=== PATIENT | male | born 1995 | race Caucasian/White ===

== ENCOUNTER 2023-04-02 12:56 | Emergency (ER) | payer OTHER, SELFPAY ==
[2023-04-02 14:23] VITALS: BP 122/70; PULSE 84; RESP 18; TEMP 36.6; O2SAT 95; BMI 25.8
--- NOTE | 2023-04-02 15:12 | ED.NURSE ---
patient is soaking finger in the [place] and water. bleeding is controlled.
--- NOTE | 2023-04-02 15:37 | CRLHL7_ITS ---
For Patients: As a result of the Cures Act, medical imaging exams and procedure reports are released immediately into your electronic medical record. You may view this report before your referring provider. If you have questions, please contact your health care provider. Indication: Trauma. Technique: Left 2nd digit, 3 views. Comparison: None. Findings/Impression: Bones: Alignment is normal. No displaced fractures or bone lesions. Joint spaces: Unremarkable. Soft tissues: Unremarkable. Dictated by Milton Navarrete MD @ 04/02/2023 5:20:31 PM (Electronically Signed)
--- NOTE | 2023-04-02 15:52 | ED_ITS ---
HPI - Extremity Injury (Upper) General Date Seen: 04/02/23 Chief Complaint: Extremity Pain/Injury, Upper Stated Complaint: Lac L index finger Time Seen by Provider: 04/02/23 15:15 Source: patient Mode of arrival: ambulatory Limitations: no limitations History of Present Illness HPI narrative: Patient is a 27-year-old male presenting emergency department for laceration to index finger. He is using handheld band saw when his left cut his finger. Thinks this all started slowing down by having his finger any pulled away right away Denies any decreased range of motion. No other injuries. No other concerns. Related Data Home Medications Medication Instructions Recorded Confirmed No Known Home Medications 04/02/23 04/02/23 Previous Rx's Medication Instructions Recorded cephalexin 500 mg capsule 500 mg PO QID #20 caps 04/02/23 Allergies Allergy/AdvReac Type Severity Reaction Status Date / Time No Known Drug Allergies Allergy Verified 04/02/23 14:27 Review of Systems Narrative: Pertinent systems negative unless stated in HPI Exam Narrative: Exam Narrative: Const: Well-nourished, Well-developed, in mild distress Eyes: PERRL, no conjunctival injection, and symmetrical lids HENT: Atraumatic external nose and ears. Moist mucous membranes. MSK:Extremities w/o deformity, Normal Active ROM Skin: Warm, Dry. 1 cm laceration to left index finger half way circumferential Neuro: Normal Muscle tone, No focal neurological deficits. Psych: Awake, Alert, & Oriented x3. Appropriate mood and affect. Const: Vital Signs, click to edit/add: Vital Signs - 24 hr 04/02/23 14:23 Temperature 97.8 F Pulse Rate [Pulse Oximeter] 84 Respiratory Rate 18 Blood Pressure [Ri ght Upper Arm] 122/70 Pulse Oximetry 95 Oxygen Delivery Me thod Room Air Course Vital Signs Vital signs: Initial Vital Signs Temperature 97.8 F 04/02/23 14:23 Temperature Source Temporal Artery Scan 04/02/23 14:23 Pulse Rate 84 04/02/23 14:23 Respiratory Rate 18 04/02/23 14:23 Blood Pressure 122/70 04/02/23 14:23 Blood Pressure Mean 87 04/02/23 14:23 Pulse Oximetry 95 04/02/23 14:23 Oxygen Delivery Method Room Air 04/02/23 14:23 Vital Signs Temperature 97.8 F 04/02/23 14:23 Pulse Rate 84 04/02/23 14:23 Respiratory Rate 18 04/02/23 14:23 Blood Pressure 122/70 04/02/23 14:23 Pulse Oximetry 95 04/02/23 14:23 Oxygen Delivery Method Room Air 04/02/23 14:23 Temperature 97.8 F 04/02/23 14:23 Pulse Rate 84 04/02/23 14:23 Respiratory Rate 18 04/02/23 14:23 Blood Pressure 122/70 04/02/23 14:23 Pulse Oximetry 95 04/02/23 14:23 Oxygen Delivery Method Room Air 04/02/23 14:23 MDM - Extremity Injury (Upper) MDM Narrative Medical decision making narrative: Patient is a 27-year-old male presenting for laceration to his left index finger. I do not see any foreign bodies and he has full range motion of extension and flexion. He tolerated the procedure well but considering the mechanism action I do want to get an x-ray to make sure there is no fracture of the bone. There are no signs of fracture at this time. He will be discharged home. He is agreeable with this plan as. Due to it being the finger and was relatively dirty blade I will start him on antibiotics. Discharge Plan Discharge Clinical Impression: Finger laceration Qualifiers: Encounter type: initial encounter Finger: index finger Damage to nail status: without damage Foreign body presence: without foreign body Laterality: left Qualified Code(s): S61.211A - Laceration without foreign body of left index finger without damage to nail, initial encounter Patient Disposition: Home, Self-Care Condition: Stable Instructions: Finger Laceration (ED) Additional Instructions: Follow-up with your primary care provider in the next 7 days to have the 5 sutures removed. For next 6 months, once sutures are removed, whenever you go outside put a dab of sunscreen over the laceration site to improve scar appearance. Topical antibiotics are not necessary at this time. Patient can shower but do not submerge the laceration until sutures are removed. Take the Keflex as prescribed If you develop any of the following signs called Kanavel's Signs it could be a sign of flexor tenosynovitis and is an emergency that you need to return to emergency department immediately for -Pain with passive extension (often the first sign seen) -Percussion tenderness (tenderness over entire length of flexor tendon sheath) -Uniform swelling (symmetric finger swelling along length of the tendon sheath) -Flexion posture (flexed posture of involved digit at rest to minimize pain) Prescriptions: New cephalexin 500 mg capsule 500 mg PO QID Qty: 20 0RF No Action No Known Home Medications Follow Up/Referrals: Provider,Not a Local [Primary Care Provider] - Stand Alone Forms: [facility] Info Instructions Procedures Laceration Index finger: Name of person performing procedure: Joe Moahmud Site: hand (Index finger) Side (If applicable): left Size (cm): 1 Description: linear and clean Depth: simple, single layer Local Anesthetic: lidocaine 1% (Digital nerve block) Amount of anesthesia used (mL): 4 Pre-repair: wound explored, irrigated extensively and deep structures intact Skin layer closed with: nylon Size (cm): 5-0 Number of sutures: 5 Technique: simple, interrupted
== END 2023-04-02 17:31 | disposition home or self-care (01) ==
PROVIDERS: Emergency Provider Student in an Organized Health Care Education/Training Program
DX: S61.211A Laceration without foreign body of left index finger without damage to nail, initial encounter (principal); W31.2XXA Contact with powered woodworking and forming machines, initial encounter
CPT/HCPCS: 12001; 73140; 99282; 99283